=== PATIENT | female | born 1955 | race Caucasian/White ===

== ENCOUNTER → 2021-11-02 | Day surgery (SDC) | payer BC ==
[~2021-11-02] VITALS: Ht 160 cm; Wt 83.9 kg
[~2021-11-02] MED LIST: AMLODIPINE BESYL5 MG PO; LIPITOR20 MG PO; LOSARTAN POTASS50 M1 PO; OMEPRAZOLE20 M2 PO
[2021-11-02 07:50] VITALS: BP 114/66
[2021-11-02 08:31] VITALS: BP 115/69
[2021-11-02 08:46] VITALS: BP 118/69
[2021-11-02 08:49] VITALS: BP 116/66
== END | disposition home or self-care (01) ==
LOC: SDC 10-29 10:15
PROVIDERS: ATTEND Surgery
DX: Z12.11 Encounter for screening for malignant neoplasm of colon (principal); K57.30 Diverticulosis of large intestine without perforation or abscess without bleeding; K29.50 Unspecified chronic gastritis without bleeding; I10 Essential (primary) hypertension; K21.9 Gastro-esophageal reflux disease without esophagitis; Z90.710 Acquired absence of both cervix and uterus; Z90.89 Acquired absence of other organs; Z79.899 Other long term (current) drug therapy